=== PATIENT | female | born 1995 | race Caucasian/White ===

== ENCOUNTER → 2016-05-22 | Outpatient (CLI) | payer OTHER ==
[~2016-05-22] MED LIST: ACET50TA PO; ANUS2.5C2 TOP; COLA100C3 PO; IBUP-1114 PO; NUPE1OIN2 TOP; PRENTAB13 PO
--- NOTE | 2016-05-22 20:51 | REP ---
Focused left breast sonography: History: Lump in the left breast outer quadrant times 1 month. Sonographic findings: The left breast is scanned at 4 o'clock at the area of the palpable lump. A spherical well-circumscribed cyst is seen measuring 1.1 x 1.0 x 1.0 cm. No mural nodularity is seen. No Doppler flow is observed. Impression: BIRADS category 2 benign left breast focused sonography. Simple 1.1 cm cyst seen at the site of the palpable lump. Clinical follow-up is advised. Signed by Jay Dumont MD 05/22/2016 08:57 P
== END ==
LOC: M RAD 10:54
PROVIDERS: ATTEND Physician Assistant
DX: N60.02 Solitary cyst of left breast (principal)

== ENCOUNTER 2016-07-03 15:42 | Emergency (ER) | payer OTHER ==
[~2016-07-03] VITALS: Ht 172.7 cm; Wt 79.4 kg
[2016-07-03] MEDS ORDERED: ONDANSETRON 4MG/2ML VIAL (J2405) IV ONE (17:15)
[2016-07-03] MEDS ORDERED: KETOROLAC 30 MG/ML VIAL (J1885) IV ONE (17:15)
[2016-07-03 17:31] LABS: BASO % 0.5 % (0.0-1.0); EOS # 0.3 K/mm3 (0.0-0.50); EOS % 4.7 % (0.0-3.0); LARGE UNSTAINED CELL # 0.1 K/mm3 (0.0-0.4); LARGE UNSTAINED CELL % 1.8 % (0.0-4.0); LYMPH # 2.6 K/mm3 (1.5-6.5); LYMPH % 33.2 % (24.0-44.0); MEAN CORPUSCULAR HEMOGLOBIN 29.2 pg (27.0-33.0); MEAN CORPUSCULAR HGB CONC 33.1 g/dl (32.0-36.5); MEAN CORPUSCULAR VOLUME 88.2 fl (80.0-96.0); MONO # 0.4 K/mm3 (0.0-0.8); MONO % 4.9 % (0.0-5.0); NEUTROPHILS # 4.1 K/mm3 (1.8-7.7); NEUTROPHILS % 54.9 % (36.0-66.0); PLATELET COUNT, AUTOMATED 309 k/mm3 (150-450); RED CELL DISTRIBUTION WIDTH 13.8 % (11.5-14.5); WHITE BLOOD COUNT 7.4 K/mm3 (4.0-10.0)
[2016-07-03 18:04] LABS: ALBUMIN 3.5 GM/DL (3.2-5.2); ALBUMIN/GLOBULIN RATIO 0.97 (1.00-1.93); ALKALINE PHOSPHATASE 106 U/L (45-117); ALT/SGPT 21 U/L (12-78); AMYLASE 34 U/L (25-115); ANION GAP 8 MEQ/L (8-16); AST/SGOT 14 U/L (15-37); BILIRUBIN,DIRECT < 0.1 MG/DL (0.0-0.2); BILIRUBIN,TOTAL 0.4 MG/DL (0.2-1.0); BLOOD UREA NITROGEN 11 MG/DL (7-18); CALCIUM LEVEL 8.5 MG/DL (8.5-10.1); CARBON DIOXIDE LEVEL 25 MEQ/L (21-32); CHLORIDE LEVEL 111 MEQ/L (98-107); CREATININE FOR GFR 0.72 MG/DL (0.55-1.02); GLOMERULAR FILTRATION RATE > 60.0 (>60); GLUCOSE, FASTING 80 MG/DL (70-105); POTASSIUM SERUM 3.5 MEQ/L (3.5-5.1); SODIUM LEVEL 144 MEQ/L (136-145); TOTAL PROTEIN 7.1 GM/DL (6.4-8.2)
[2016-07-03 18:24] LABS: CONTROL LINE UCG INT CTR LINE PRESENT
--- NOTE | 2016-07-03 18:42 | REP ---
Clinical: Upper quadrant pain. Technique: Real time toure scale and color evaluation using curved array transducer. Findings: The liver is normal in contour, size, echogenicity without focal hepatic abnormality appreciated. The pancreas is incompletely evaluated but visualized portions appear normal. The spleen is normal in contour and echogenicity but measures 13.5 cm in craniocaudal length suggesting mild splenomegaly without focal splenic lesion or abnormality. The gallbladder is normal and without gallstones, wall thickening, or pericholecystic fluid. No biliary ductal dilatation is appreciated and the common bile duct measures 1.5 mm diameter. The bilateral kidneys demonstrate mild medullary echogenicities suggesting the possibility of medullary nephrocalcinosis and correlation is recommended. The kidneys are otherwise unremarkable and without hydronephrosis, cystic or mass lesion. No ascites. Spleen measures 13.5 cm in craniocaudal length. Right kidney measures 11.0 x 4.8 x 4.5 cm. Left kidney measures 12.0 x 5.5 x 3.5 cm. Impression: 1. Mild splenomegaly cannot be excluded without focal splenic lesion identified. 2. Kidneys demonstrate subtle increased medullary echogenicities raising the possibility of medullary nephrocalcinosis and correlation may be warranted. No associated hydronephrosis. 3. Normal appearance to the liver, gallbladder, and visualized pancreas. Signed by Sukh Snyder MD 07/03/2016 06:33 P
[2016-07-03] MEDS ORDERED: NS 1,000 ML IV ONE (18:45)
[2016-07-03] MEDS ORDERED: ZOFR4TAB3 PO (19:37)
[2016-07-03 20:10] VITALS: BP 108/59
--- NOTE | 2016-07-05 07:14 | ED PDOC ---
Post-Departure Follow-Up osacr faxed formal report of abdlamin aviles for fu Marcus Rich MD July 05, 2016 07:14
== END 2016-07-03 20:13 | disposition home or self-care (01) ==
LOC: M ED 17:03
DX: R10.10 Upper abdominal pain, unspecified (principal); R16.1 Splenomegaly, not elsewhere classified
CPT/HCPCS: 76700; 80048; 80076; 81001; 82150; 83690; 84703; 85025; 86140; 96361; 96374; 96375; 99283; J1885; J2405

== ENCOUNTER 2016-09-24 15:57 | Emergency (ER) | payer OTHER ==
[~2016-09-24] VITALS: Ht 175.3 cm; Wt 88.0 kg
[~2016-09-24 15:57] MED LIST changes: -COLA100C3 PO; +COLA100C5 PO; -PRENTAB13 PO; +PRENTAB20 PO; +ZOFR4TAB3 PO
[2016-09-24 18:07] LABS: BASO # 0.1 K/mm3 (0.0-0.2); BASO % 0.6 % (0.0-1.0); EOS # 0.4 K/mm3 (0.0-0.50); EOS % 4.1 % (0.0-3.0); LARGE UNSTAINED CELL # 0.2 K/mm3 (0.0-0.4); LARGE UNSTAINED CELL % 1.6 % (0.0-4.0); LYMPH # 2.6 K/mm3 (1.5-6.5); LYMPH % 23.3 % (24.0-44.0); MEAN CORPUSCULAR HEMOGLOBIN 30.4 pg (27.0-33.0); MEAN CORPUSCULAR HGB CONC 34.5 g/dl (32.0-36.5); MEAN CORPUSCULAR VOLUME 88.1 fl (80.0-96.0); MONO # 0.4 K/mm3 (0.0-0.8); MONO % 4.1 % (0.0-5.0); NEUTROPHILS % 66.3 % (36.0-66.0); PLATELET COUNT, AUTOMATED 342 k/mm3 (150-450); RED CELL DISTRIBUTION WIDTH 13.2 % (11.5-14.5); WHITE BLOOD COUNT 10.5 K/mm3 (4.0-10.0)
--- NOTE | 2016-09-24 19:40 | REPUSA ---
HISTORY: Vaginal bleeding. LMP: 08/01/16 gestational age by LMP: 7 weeks 5 days. TECHNIQUE: Transabdominal and transvaginal obstetrical ultrasound examination with color flow Dopple r imaging. FINDINGS: Uterus measures 9.1 x 4.4 x 6.5 cm and contains a gestational sac measuring 1.63 x 0.93 x 1.27 cm, which would correspond to a gestational age of 6 weeks 3 days, but no pole is seen an d no viable is seen. A yolk sac is identified measuring 6 mm. There is poor decidual reac tion and there are focal areas of subchorionic hemorrhage. There is a complex fluid collection ident ified in the distal endometrial canal, and these findings are consistent with pending, missed abortio n. Left ovary measures 3.1 x 2.8 x 2.9 cm with normal Doppler vascularity and resistive index of 0.43. There is a 1.9 x 1.5 x 2.3 cm cyst in the left ovary, probably corpus luteum. Right ovary measures 2.1 x 1.4 x 2.6 cm with normal Doppler vascularity and resistive index of 0.39. No ovarian masses seen in the right ovary. No extrauterine pathologic mass or abnormal fluid collection is seen. There is no detectable evidenc e of ectopic . IMPRESSION: No viable identified, and findings are consistent with pending/missed as discussed above. Clinical correlation and followup imaging may be warranted as clinically indicated.
[2016-09-24 20:05] VITALS: BP 140/84
== END 2016-09-24 20:10 | disposition home or self-care (01) ==
LOC: M ED 15:57
DX: O20.0 Threatened abortion (principal); Z3A.01 Less than 8 weeks gestation of pregnancy

== ENCOUNTER → 2016-09-26 | Outpatient (CLI) | payer OTHER | LOC: M LAB 11:03 | PROVIDERS: ATTEND Obstetrics & Gynecology | DX: O20.0 Threatened abortion (principal) ==

== ENCOUNTER → 2016-10-01 | Outpatient (CLI) | payer OTHER ==
[~2016-10-01] VITALS: Ht 172.7 cm; Wt 86.7 kg
[~2016-10-01] MED LIST changes: +ACETAMINOPHEN 650 MG SUPP As Ordered ONE; +ACETAMINOPHEN 650 MG SUPP PR ONE; +LR 1,000 ML IV SCH; +METOCLOPRAMIDE INJ 10MG/2ML VIAL (J2765) IV PRN; +ONDANSETRON 4MG/2ML VIAL (J2405) IV PRN; +PERCOCET 5MG/325MG TAB PO PRN; +fentaNYL 100 MCG/2 ML INJECTION (J3010) IV PRN
--- NOTE | 2016-10-01 17:56 | REP ---
FIRST TRIMESTER ULTRASOUND: Real-time sonographic evaluation of the gravid uterus is performed utilizing transabdominal and endovaginal technique. Uterus measures 8.2 x 5.1 x 7.1 cm. There is an intrauterine sac which measures 16 mm in mean diameter with an estimated gestational age of 6 weeks 3 days. Compared to the prior ultrasound of 09/24/2016, the sac at that time was 14 mm which corresponded to 6 weeks 2 days gestational age. No identifiable yolk sac or pole is seen within the gestational sac. There is complex cystic and solid area within the gestational sac which measures 9 x 8 x 13 mm, likely representing products of conception. Findings are most consistent with missed AB and non-viable . Arterial wave forms are seen and blood vessels within the solid portion of this tissue. Right ovary measures 3.1 x 1.9 x 2.6 cm and left ovary measures 3.4 x 2.7 x 2.5 cm. There is a cystic structure in the left ovary 1.7 x 2.0 x 1.9 cm. There is blood flow seen in each ovary with duplex Doppler evaluation with no torsion. RI right ovary 0.59 and left ovary 0.50. There is no other evidence of adnexal mass or free fluid. IMPRESSION: Findings most consistent with nonviable /missed AB as discussed above. Signed by Nic Bray MD 10/02/2016 05:06 P
[2016-10-02 07:25] LABS: MEAN CORPUSCULAR HEMOGLOBIN 30.2 pg (27.0-33.0); MEAN CORPUSCULAR HGB CONC 34.1 g/dl (32.0-36.5); MEAN CORPUSCULAR VOLUME 88.5 fl (80.0-96.0); RED CELL DISTRIBUTION WIDTH 13.4 % (11.5-14.5); WHITE BLOOD COUNT 9.2 K/mm3 (4.0-10.0)
[2016-10-02 08:02] LABS: ANION GAP 10 MEQ/L (8-16); BLOOD UREA NITROGEN 11 MG/DL (7-18); CARBON DIOXIDE LEVEL 23 MEQ/L (21-32); CHLORIDE LEVEL 108 MEQ/L (98-107); CREATININE FOR GFR 0.59 MG/DL (0.55-1.02); GLOMERULAR FILTRATION RATE > 60.0 (>60); GLUCOSE, FASTING 86 MG/DL (70-105); HCG, SERUM QUANTITATIVE 15811 MIU/ML; POTASSIUM SERUM 4.1 MEQ/L (3.5-5.1); SODIUM LEVEL 141 MEQ/L (136-145)
== END ==
LOC: M RAD 14:47 → M OROP 10-02 06:41
PROVIDERS: ATTEND Obstetrics & Gynecology
DX: O26.891 Other specified pregnancy related conditions, first trimester (principal); R10.9 Unspecified abdominal pain; Z3A.00 Weeks of gestation of pregnancy not specified

== ENCOUNTER 2016-10-02 08:00 | Day surgery (SDC) | payer OTHER ==
[~2016-10-02 08:00] MED LIST changes: -ACETAMINOPHEN 650 MG SUPP As Ordered ONE; -ACETAMINOPHEN 650 MG SUPP PR ONE; -LR 1,000 ML IV SCH; -METOCLOPRAMIDE INJ 10MG/2ML VIAL (J2765) IV PRN; -ONDANSETRON 4MG/2ML VIAL (J2405) IV PRN; -PERCOCET 5MG/325MG TAB PO PRN; -fentaNYL 100 MCG/2 ML INJECTION (J3010) IV PRN
[2016-10-02] MEDS ORDERED: PROPOFOL 200 MG/20 ML VIAL As Ordered ONE (08:17)
[2016-10-02] MEDS ORDERED: LIDOCAINE 2% INJ 100 MG/5 ML SDV (FOR ANES.) As Ordered ONE (08:17)
[2016-10-02] MEDS ORDERED: fentaNYL 100 MCG/2 ML INJECTION (J3010) As Ordered ONE (08:17)
[2016-10-02] MEDS ORDERED: MIDAZOLAM INJ 2 MG/2 ML VIAL (J2250) As Ordered ONE (08:17)
[2016-10-02] MEDS ORDERED: ACETAMINOPHEN 650 MG SUPP PR ONE (08:41)
[2016-10-02 10:10] VITALS: BP 111/60
--- NOTE | 2016-10-05 11:09 | RO ---
DATE OF PROCEDURE: 10/02/2016 PREOPERATIVE DIAGNOSIS: Missed . POSTOPERATIVE DIAGNOSIS: Missed . OPERATION PROPOSED: Suction and curettage. OPERATION PERFORMED: Suction and curettage. ANESTHESIA: General. ESTIMATED BLOOD LOSS: Less than 20 mL. SURGEON: Clayton Pandey MD SET PAINTER: DESCRIPTION OF PROCEDURE: After adequate anesthesia, prepped and draped in lithotomy position, adequate time-out was performed. The bladder was drained for 350 mL to 400 mL of clear urine. Weighted speculum done, a single-tooth tenaculum, the anterior lip of the cervix. Uterus sounded up to 9 cm. Already dilated to a Cleary 13 curved suction curette #10 applied. Curettage to the cavity was smooth. Uterus replaced in anatomical position well, contracted under Pitocin. The patient is O+, does not require RhoGAM. She had a little tear from the tenaculum on the anterior lip of the cervix, oversewn with a 2-0 Vicryl. Again, with instrument and pad count correct. Uterus contracted well down. The patient was sent to recovery in good condition.
== END 2016-10-02 10:28 | disposition home or self-care (01) ==
LOC: M SDC 08:00 → EDSTATUS 08:50 → M SDC 10:28
PROVIDERS: ATTEND Obstetrics & Gynecology
DX: O02.1 Missed abortion (principal)
CPT/HCPCS: 36415; 59820; 80048; 84702; 85027; 86850; 86900; 86901; 88305; J2250; J3010

== ENCOUNTER 2017-03-22 14:04 | Emergency (ER) | payer OTHER ==
[2017-03-22] MEDS: NS 1,000 ML IV (15:00)
[2017-03-22 15:53] LABS: BASO # 0.1 10^3/uL (0.0-0.2); BASO % 0.4 % (0.0-1.0); EOS # 0.5 10^3/uL (0.0-0.50); EOS % 3.1 % (0.0-3.0); IMMATURE GRANULOCYTE # 0.1 10^3/uL (0-0); IMMATURE GRANULOCYTE % 0.6 % (0-0); LYMPH # 2.6 10^3/uL (1.5-6.5); LYMPH % 16.1 % (24.0-44.0); MEAN CORPUSCULAR HEMOGLOBIN 30.1 pg (27.0-33.0); MEAN CORPUSCULAR HGB CONC 34.3 g/dl (32.0-36.5); MEAN CORPUSCULAR VOLUME 87.7 fl (80.0-96.0); MONO # 1.1 10^3/uL (0.0-0.8); MONO % 6.6 % (0.0-5.0); NEUTROPHILS # 11.8 10^3/uL (1.8-7.7); NEUTROPHILS % 73.2 % (36.0-66.0); PLATELET COUNT, AUTOMATED 287 10^3/uL (150-450); RED BLOOD COUNT 3.99 10^6/uL (4.00-5.40); RED CELL DISTRIBUTION WIDTH 12.8 % (11.5-14.5); WHITE BLOOD COUNT 16.1 10^3/uL (4.0-10.0)
[2017-03-22 16:16] LABS: ALBUMIN 3.5 GM/DL (3.2-5.2); ALBUMIN/GLOBULIN RATIO 1.13 (1.00-1.93); ALKALINE PHOSPHATASE 62 U/L (45-117); ALT/SGPT 18 U/L (12-78); AMYLASE 44 U/L (25-115); ANION GAP 7 MEQ/L (8-16); AST/SGOT 17 U/L (7-37); BILIRUBIN,DIRECT < 0.1 MG/DL (0.0-0.2); BILIRUBIN,TOTAL 0.1 MG/DL (0.2-1.0); BLOOD UREA NITROGEN 9 MG/DL (7-18); CALCIUM LEVEL 8.3 MG/DL (8.5-10.1); CARBON DIOXIDE LEVEL 24 MEQ/L (21-32); CHLORIDE LEVEL 109 MEQ/L (98-107); CREATININE FOR GFR 0.61 MG/DL (0.55-1.30); GLOMERULAR FILTRATION RATE > 60.0 (>60); GLUCOSE, FASTING 80 MG/DL (70-100); LIPASE 109 U/L (73-393); POTASSIUM SERUM 3.8 MEQ/L (3.5-5.1); SODIUM LEVEL 140 MEQ/L (136-145); TOTAL PROTEIN 6.6 GM/DL (6.4-8.2)
[2017-03-22 16:30] LABS: HCG, SERUM QUANTITATIVE 74957 MIU/ML
== END 2017-03-22 19:04 | disposition home or self-care (01) ==
LOC: M ED 14:04
DX: Z04.1 Encounter for examination and observation following transport accident (principal); O9A.211 Injury, poisoning and certain other consequences of external causes complicating pregnancy, first trimester; S20.219A Contusion of unspecified front wall of thorax, initial encounter; O20.0 Threatened abortion; S70.02XA Contusion of left hip, initial encounter; V43.52XA Car driver injured in collision with other type car in traffic accident, initial encounter; Y92.410 Unspecified street and highway as the place of occurrence of the external cause; Z3A.09 9 weeks gestation of pregnancy
CPT/HCPCS: 71045

== ENCOUNTER 2017-04-17 21:09 | Emergency (ER) | payer OTHER ==
[2017-04-18] MEDS: NS 1,000 ML IV (01:15)
[2017-04-18 01:30] LABS: BASO # 0.1 10^3/uL (0.0-0.2); BASO % 0.4 % (0.0-1.0); EOS # 0.5 10^3/uL (0.0-0.50); EOS % 3.2 % (0.0-3.0); HEMATOCRIT 35.2 % (36.0-47.0); HEMOGLOBIN 12.3 g/dl (12.0-16.0); IMMATURE GRANULOCYTE % 0.4 % (0-3.0); LYMPH # 3.8 10^3/uL (1.5-6.5); LYMPH % 26.5 % (24.0-44.0); MEAN CORPUSCULAR HEMOGLOBIN 30.5 pg (27.0-33.0); MEAN CORPUSCULAR HGB CONC 34.9 g/dl (32.0-36.5); MEAN CORPUSCULAR VOLUME 87.3 fl (80.0-96.0); MONO # 0.9 10^3/uL (0.0-0.8); MONO % 6.3 % (0.0-5.0); NEUTROPHILS % 63.2 % (36.0-66.0); PLATELET COUNT, AUTOMATED 298 10^3/uL (150-450); RED BLOOD COUNT 4.03 10^6/uL (4.00-5.40); RED CELL DISTRIBUTION WIDTH 12.9 % (11.5-14.5); WHITE BLOOD COUNT 14.2 10^3/uL (4.0-10.0)
[2017-04-18 01:34] LABS: KETONE, URINE AUTO RFX NEGATIVE (NEGATIVE); LEUKOCYTE ESTERASE UR AUTO RFX NEGATIVE (NEGATIVE); MUCUS, URINE RFX SMALL (NEGATIVE); NITRITE, URINE AUTO RFX NEGATIVE (NEGATIVE); RBC, URINE AUTO RFX 2 /HPF (0-3); SPECIFIC GRAVITY UR AUTO RFX 1.024 (1.002-1.035); SQUAM EPITHELIAL CELL UR AURFX 1 /HPF (0-6); WBC, URINE AUTO RFX 3 /HPF (0-3)
[2017-04-18 02:05] LABS: HCG, SERUM QUANTITATIVE 38469 MIU/ML
== END 2017-04-18 02:51 | disposition home or self-care (01) ==
LOC: M ED 21:09
DX: O20.0 Threatened abortion (principal); Z3A.13 13 weeks gestation of pregnancy; Z79.899 Other long term (current) drug therapy
CPT/HCPCS: 76801

== ENCOUNTER 2017-04-20 10:47 | Emergency (ER) | payer OTHER ==
[2017-04-20] MEDS: METOCLOPRAMIDE INJ 10MG/2ML VIAL (J2765) IV (11:30)
[2017-04-20 11:43] LABS: BASO % 0.4 % (0.0-1.0); EOS # 0.3 10^3/uL (0.0-0.50); HEMATOCRIT 33.5 % (36.0-47.0); IMMATURE GRANULOCYTE % 0.4 % (0-3.0); LYMPH # 2.3 10^3/uL (1.5-6.5); LYMPH % 29.8 % (24.0-44.0); MEAN CORPUSCULAR HEMOGLOBIN 30.8 pg (27.0-33.0); MEAN CORPUSCULAR HGB CONC 35.8 g/dl (32.0-36.5); MEAN CORPUSCULAR VOLUME 86.1 fl (80.0-96.0); MONO # 0.6 10^3/uL (0.0-0.8); MONO % 7.3 % (0.0-5.0); NEUTROPHILS # 4.6 10^3/uL (1.8-7.7); NEUTROPHILS % 58.1 % (36.0-66.0); PLATELET COUNT, AUTOMATED 241 10^3/uL (150-450); RED BLOOD COUNT 3.89 10^6/uL (4.00-5.40); RED CELL DISTRIBUTION WIDTH 13.1 % (11.5-14.5); WHITE BLOOD COUNT 7.8 10^3/uL (4.0-10.0)
[2017-04-20] MEDS: NS 1,000 ML IV ×2 (11:58→12:57)
[2017-04-20 12:06] LABS: ALBUMIN 3.5 GM/DL (3.2-5.2); ALKALINE PHOSPHATASE 55 U/L (45-117); ALT/SGPT 14 U/L (12-78); ANION GAP 8 MEQ/L (8-16); AST/SGOT 13 U/L (7-37); BILIRUBIN,TOTAL 0.2 MG/DL (0.2-1.0); BLOOD UREA NITROGEN 9 MG/DL (7-18); CALCIUM LEVEL 8.6 MG/DL (8.5-10.1); CARBON DIOXIDE LEVEL 23 MEQ/L (21-32); CHLORIDE LEVEL 107 MEQ/L (98-107); CREATININE FOR GFR 0.48 MG/DL (0.55-1.30); GLOMERULAR FILTRATION RATE > 60.0 (>60); GLUCOSE, FASTING 76 MG/DL (70-100); POTASSIUM SERUM 3.8 MEQ/L (3.5-5.1); SODIUM LEVEL 138 MEQ/L (136-145)
[2017-04-20 12:19] LABS: HCG, SERUM QUANTITATIVE 43460 MIU/ML
== END 2017-04-20 14:32 | disposition home or self-care (01) ==
LOC: M ED 10:47
DX: O26.891 Other specified pregnancy related conditions, first trimester (principal); R10.2 Pelvic and perineal pain; O36.8991 Maternal care for other specified fetal problems, unspecified trimester, fetus 1; Z3A.13 13 weeks gestation of pregnancy
CPT/HCPCS: J2765